=== PATIENT | male | born 1975 | race Caucasian/White ===

== ENCOUNTER 2018-08-03 22:38 | Inpatient (IN) | payer SELFPAY ==
[~2018-08-03] VITALS: Ht 182.9 cm; Wt 100.9 kg
[2018-08-03 23:43] LABS: BASOPHIL % 0.2 % (0-2); PLATELET COUNT 372 x10^3mcL (130-400); RED CELL DISTRIBUTION WIDTH 12.5 % (11.5-14.5)
[2018-08-03 23:48] LABS: CALCIUM 8.5 mg/dL (8.5-10.1); CARBON DIOXIDE 25.9 mmol/L (21-32); CHLORIDE SERUM 104 mmol/L (98-107); CREATININE SERUM 0.8 mg/dL (0.7-1.3); GFR1 > 60 mL/min; GLUCOSE SERUM 109 mg/dL (74-106); POTASSIUM SERUM 3.7 mmol/L (3.5-5.1); SODIUM SERUM 139 mmol/L (136-145)
[2018-08-03 23:53] LABS: ALBUMIN 3.4 g/dL (3.4-5.0); ALKALINE PHOSPHATASE 99 U/L (46-116); ALT/SGPT 34 U/L (16-63); AST/SGOT 19 U/L (15-37); BILIRUBIN TOTAL 0.26 mg/dL (0.20-1.00); LIPASE 154 IU/L (73-393); TOTAL PROTEIN, SERUM 6.9 g/dL (6.4-8.2)
[2018-08-04 01:47] LABS: CHOLESTEROL/HDL RATIO 3.5; MAGNESIUM 2.1 mg/dL (1.8-2.4); PHOSPHOROUS 3.3 mg/dL (2.5-4.9)
[2018-08-04 01:54] LABS: FREE T4 1.06 ng/dL (0.76-1.46); FREE THYROXINE INDEX 3.7 ug/dL (1.4-4.5); T3 TOTAL 1.44 ng/mL; T4(THYROXINE) 9.5 ug/dL (4.7-13.3)
[2018-08-04 04:00] VITALS: BP 114/70
[2018-08-04 07:18] LABS: BASOPHIL % 0.3 % (0-2); PLATELET COUNT 336 x10^3mcL (130-400); RED CELL DISTRIBUTION WIDTH 12.8 % (11.5-14.5)
[2018-08-04 07:44] LABS: CALCIUM 8.3 mg/dL (8.5-10.1); CARBON DIOXIDE 26.3 mmol/L (21-32); CHLORIDE SERUM 106 mmol/L (98-107); CREATININE SERUM 0.7 mg/dL (0.7-1.3); GFR1 > 60 mL/min; GLUCOSE SERUM 91 mg/dL (74-106); PHOSPHOROUS 3.3 mg/dL (2.5-4.9); POTASSIUM SERUM 3.8 mmol/L (3.5-5.1); SODIUM SERUM 140 mmol/L (136-145)
[2018-08-04 12:33] VITALS: BP 121/63
[2018-08-04 18:30] VITALS: BP 132/79
[2018-08-04 21:34] VITALS: BP 125/76
[2018-08-04 22:44] VITALS: Ht 182.9 cm; Wt 100.9 kg
[2018-08-05 05:57] VITALS: BP 138/78
[2018-08-05 06:21] LABS: BASOPHIL % 0.3 % (0-2); PLATELET COUNT 387 x10^3mcL (130-400); RED CELL DISTRIBUTION WIDTH 12.6 % (11.5-14.5)
[2018-08-05 06:46] LABS: CALCIUM 8.7 mg/dL (8.5-10.1); CARBON DIOXIDE 27.6 mmol/L (21-32); CHLORIDE SERUM 105 mmol/L (98-107); CREATININE SERUM 0.7 mg/dL (0.7-1.3); GFR1 > 60 mL/min; GLUCOSE SERUM 105 mg/dL (74-106); MAGNESIUM 1.9 mg/dL (1.8-2.4); PHOSPHOROUS 3.8 mg/dL (2.5-4.9); POTASSIUM SERUM 3.4 mmol/L (3.5-5.1); SODIUM SERUM 141 mmol/L (136-145)
[2018-08-05 09:33] VITALS: BP 115/60
[2018-08-05 17:20] VITALS: BP 113/70
[2018-08-05 21:54] VITALS: BP 122/65
[2018-08-06 05:05] VITALS: BP 114/71
[2018-08-06 06:32] LABS: CALCIUM 8.7 mg/dL (8.5-10.1); CARBON DIOXIDE 28.1 mmol/L (21-32); CHLORIDE SERUM 108 mmol/L (98-107); CREATININE SERUM 0.6 mg/dL (0.7-1.3); GFR1 > 60 mL/min; GLUCOSE SERUM 99 mg/dL (74-106); POTASSIUM SERUM 3.8 mmol/L (3.5-5.1); SODIUM SERUM 143 mmol/L (136-145)
[2018-08-06 06:46] LABS: BASOPHIL % 0.3 % (0-2); PLATELET COUNT 344 x10^3mcL (130-400)
[2018-08-06 09:45] VITALS: BP 122/64
[2018-08-06 12:57] VITALS: BP 122/64
[2018-08-06] MEDS ORDERED: LEVOFLOXACIN500 M1 PO (13:25)
[2018-08-06] MEDS ORDERED: OMEPRAZOLE40 M1 PO (13:27)
[2018-08-06] MEDS ORDERED: LAC PO (13:28)
[2018-08-06] MEDS ORDERED: METAMUCIL660 GM PO (13:29)
== END 2018-08-06 13:30 | disposition home or self-care (01) | DRG 872 ==
LOC: ED 22:38 → MU 08-04 00:51
PROVIDERS: Emergency Medicine; Internal Medicine; ADMIT Internal Medicine
PROC: 0DBP8ZX Excision of Rectum, Via Natural or Artificial Opening Endoscopic, Diagnostic (ICD-10-PCS; principal; 2018-08-05 08:00)
DX: A41.9 Sepsis, unspecified organism (principal); K62.5 Hemorrhage of anus and rectum; Z83.3 Family history of diabetes mellitus; Z88.6 Allergy status to analgesic agent; K52.9 Noninfective gastroenteritis and colitis, unspecified; F17.210 Nicotine dependence, cigarettes, uncomplicated; B95.62 Methicillin resistant Staphylococcus aureus infection as the cause of diseases classified elsewhere
CPT/HCPCS: 45378; 83880; 84439; C9113; J1200; J1610; J1956; J2250; J2270; J2310; J2405; J3010; J3490; J7030; Q0092; Q9967